=== PATIENT | female | born 1970 | race African-American/Black ===

== ENCOUNTER 2025-03-23 13:46 | Emergency (ER) | payer MEDICAID ==
[~2025-03-23] VITALS: Ht 165.1 cm; Wt 91.0 kg
[2025-03-23 13:48] VITALS: BP 142/80; PULSE 45; RESP 16; TEMP 37.2; O2SAT 99
[2025-03-23 15:50] LABS: CLARITY URINE CLEAR (CLEAR); COLOR URINE YELLOW (YELLOW); GLUCOSE URINE NEGATIVE (NEGATIVE); KETONES URINE 3+ (NEGATIVE); LEUKOCYTE ESTERASE URINE TRACE (NEGATIVE); NITRITE URINE NEGATIVE (NEGATIVE); OCCULT BLOOD URINE 3+ (NEGATIVE); PH URINE 7.0 (4.5-8.0); PROTEIN URINE TRACE (NEGATIVE); SPECIFIC GRAVITY URINE 1.015 (1.005-1.030); UROBILINOGEN URINE 0.2 E.U./dL (0.2-1.0)
[2025-03-23 15:54] LABS: BACTERIA URINE 1+; SQUAMOUS EPITHELIAL CELL URINE FEW /lpf (RARE/1+)
[2025-03-23 15:54] LABS: HEMATOCRIT. 38.6 % (36.0-48.0); HEMOGLOBIN. 12.8 g/dL (12.0-16.0); MEAN PLATELET VOLUME 8.6 fl (7.4-10.4); PLATELET 275 x1000/uL (130-400); RED BLOOD CELL COUNT 4.96 mill/uL (4.2-5.4); RED CELL DISTRIBUTION WIDTH 15.2 % (11.6-14.6)
[2025-03-23 16:06] LABS: CREATININE 0.7 mg/dL (0.6-1.0); HCG SCREEN NEGATIVE; UREA NITROGEN BLOOD 10 mg/dL (9-23)
[2025-03-23 16:17] LABS: LYMPHOCYTES % MANUAL 11.0 % (20.0-60.0); MONOCYTES % MANUAL 7.0 % (2.0-8.0); NEUTROPHILS % MANUAL 82.0 % (45.0-75.0); PLATELET ESTIMATE NORMAL
[2025-03-23] MEDS ORDERED: TOPUD MT (17:06)
[2025-03-23] MEDS ORDERED: IBUP-1523 MT (17:06)
[2025-03-23] MEDS ORDERED: SULF1TAB48 MT (17:06)
== END 2025-03-23 17:19 | disposition home or self-care (01) ==
LOC: ER 14:08
DX: R10.24 Suprapubic pain (principal)
CPT/HCPCS: 36415; 80048; 81003; 83605; 84703; 85025; 99283